=== PATIENT | female | born 1970 | race Caucasian/White ===

== ENCOUNTER 2019-03-21 02:08 | Day surgery (SDC) | payer BC ==
[~2019-03-21 02:08] MED LIST: Actoplus Met 11 EACH PO; Amaryl1 MG; CLOB.05TC TOP; CYCL10 PO; Crutch1 EACH MISC; DELZICOL400 MG PO; DOXY100 PO; FENO145 PO; HYDACE5; HYOS.125 SL; LOVA40 PO; METF500 PO; METO25ER; Norco 5-325 Ta1 EACH PO; OMEP40CA12 PO; PIOG15; PROBIOTIC1 EAC1 PO; Percocet 5-3251 EACH PO; Prilosec20 MG PO; Synthroid50 MCG PO; TRAZ50 PO
[2019-03-21] MEDS ORDERED: ENTYVIO300 MG IV (15:27)
== END 2019-03-21 16:23 | disposition home or self-care (01) ==
LOC: ATC 02:08
DX: K51.50 Left sided colitis without complications (principal); K62.89 Other specified diseases of anus and rectum
CPT/HCPCS: 96413; J3380; J7050

== ENCOUNTER 2019-04-04 00:33 | Day surgery (SDC) | payer BC ==
[~2019-04-04 00:33] MED LIST changes: +ENTYVIO300 MG IV
== END 2019-04-04 16:40 | disposition home or self-care (01) ==
LOC: ATC 00:33
DX: K51.50 Left sided colitis without complications (principal); K62.89 Other specified diseases of anus and rectum
CPT/HCPCS: 96365; J3380; J7050

== ENCOUNTER 2019-05-02 00:32 | Day surgery (SDC) | payer BC | END 2019-05-02 16:50 | disposition home or self-care (01) | LOC: ATC 00:32 | DX: K51.50 Left sided colitis without complications (principal) | CPT/HCPCS: J3380; J7050 ==

== ENCOUNTER 2019-06-27 01:11 | Day surgery (SDC) | payer BC | END 2019-06-27 23:08 | disposition home or self-care (01) | LOC: ATC 01:11 | DX: K51.90 Ulcerative colitis, unspecified, without complications (principal) | CPT/HCPCS: J3380; J7050 ==

== ENCOUNTER 2019-07-11 00:24 | Day surgery (SDC) | payer BC | END 2019-07-11 15:48 | disposition home or self-care (01) | LOC: ATC 00:24 | DX: K51.50 Left sided colitis without complications (principal) | CPT/HCPCS: 96365; J3380; J7050 ==

== ENCOUNTER 2019-08-03 19:17 | Emergency (ER) | payer BC ==
[~2019-08-03] VITALS: Ht 154.9 cm; Wt 80.7 kg
[2019-08-03 20:14] LABS: BASOPHILS ABSOLUTE AUTO 0.14 K/mm3 (0.00-0.23); BASOPHILS PERCENT AUTO 2 % (0-2); EOSINOPHILS ABSOLUTE AUTO 0.26 K/mm3 (0.00-0.68); EOSINOPHILS PERCENT AUTO 3 % (0-6); Hematocrit 36.1 % (33.0-51.0); Hemoglobin 10.8 g/dL (11.5-16.0); IMMATURE GRAN ABSOLUTE AUTO 0.02 K/mm3 (0.00-0.10); IMMATURE GRAN PERCENT AUTO 0 % (0-1); LYMPHOCYTES ABSOLUTE AUTO 3.48 K/mm3 (0.84-5.20); LYMPHOCYTES PERCENT AUTO 38 % (21-46); MONOCYTES ABSOLUTE AUTO 0.57 K/mm3 (0.16-1.47); MONOCYTES PERCENT AUTO 6 % (4-13); Mean Corpuscular HGB 21.9 pg (26.0-34.0); Mean Corpuscular HGB Conc 29.9 g/dL (31.5-36.5); Mean Corpuscular Volume 73 fL (80-100); Mean Platelet Volume 10.4 fL (9.1-12.4); NEUTROPHILS ABSOLUTE AUTO 4.72 K/mm3 (1.96-9.15); NEUTROPHILS PERCENT AUTO 51 % (41-73); Platelet Count 317 K/mm3 (150-400); RDW Coefficient Variation 16.4 % (11.7-14.2); RDW Standard Deviation 42.6 fL (35.1-46.3); Red Blood Cell Count 4.94 M/mm3 (3.80-5.20); White Blood Cell Count 9.19 K/mm3 (4.00-11.30)
[2019-08-03 20:33] LABS: Alanine Aminotransfer (ALT/SGP 17 U/L (12-78); Albumin, Blood 3.6 g/dL (3.4-5.0); Albumin/Globulin Ratio 0.9 (0.8-1.8); Alk Phos 72 U/L (50-136); Anion Gap 8 mmol/L (6-16); Aspartate Aminotrans (AST/SGOT 11 U/L (12-37); Bilirubin, Total 0.2 mg/dL (0.1-1.0); Blood Urea Nitrogen 13 mg/dL (8-24); Bun/Creatinine Ratio 20.9 (12.0-20.0); CO2, Blood 24 mmol/L (21-32); Calcium, Blood 8.2 mg/dL (8.5-10.1); Chloride, Blood 107 mmol/L (98-108); Creatinine, Blood 0.62 mg/dL (0.40-1.00); Globulin, Blood 4.2 g/dL (2.2-4.0); Glomerular Filtration Rate >60 (60-); Glucose, Blood 186 mg/dL (70-99); Potassium, Blood 3.7 mmol/L (3.5-5.5); Sodium, Blood 139 mmol/L (136-145); Total Protein, Blood 7.8 g/dL (6.4-8.2)
[2019-08-03] MEDS ORDERED: Motion Sickness25 M1 PO (21:11)
[2019-08-03] MEDS ORDERED: ONDA4ODT MM (21:11)
== END 2019-08-03 21:25 | disposition home or self-care (01) ==
LOC: ER 19:17
PROVIDERS: Emergency Medicine
DX: R42 Dizziness and giddiness (principal); R11.0 Nausea; E03.9 Hypothyroidism, unspecified; Z91.040 Latex allergy status; Z88.8 Allergy status to other drugs, medicaments and biological substances; Z79.899 Other long term (current) drug therapy
CPT/HCPCS: 36415; 80053; 85025; 93005; 93010; 96374; 96375; 99284-25; A9270-GY; J1200; J2405

== ENCOUNTER 2020-02-05 10:00 | Day surgery (SDC) | payer BC ==
[~2020-02-05 10:00] MED LIST changes: +Motion Sickness25 M1 PO; +ONDA4ODT MM
== END 2020-02-05 11:19 | disposition home or self-care (01) ==
LOC: ATC 10:00
DX: K51.90 Ulcerative colitis, unspecified, without complications (principal); K59.00 Constipation, unspecified; D50.9 Iron deficiency anemia, unspecified; E11.9 Type 2 diabetes mellitus without complications; D64.9 Anemia, unspecified; I48.91 Unspecified atrial fibrillation; Z90.49 Acquired absence of other specified parts of digestive tract; Z79.84 Long term (current) use of oral hypoglycemic drugs; Z79.52 Long term (current) use of systemic steroids; Z79.899 Other long term (current) drug therapy; Z91.040 Latex allergy status; Z88.8 Allergy status to other drugs, medicaments and biological substances
CPT/HCPCS: 96365; J3380; J7050

== ENCOUNTER 2021-01-13 01:16 | Day surgery (SDC) | payer BC ==
[~2021-01-13] VITALS: Wt 79.2 kg
[2021-01-13] MEDS ORDERED: TRAZ150T57 PO (16:11)
[2021-01-13] MEDS ORDERED: ZANAFLEX4 M8 PO (16:12)
[2021-01-13] MEDS ORDERED: CHLO25B PO (16:12)
== END 2021-01-13 17:36 | disposition home or self-care (01) ==
LOC: ATC 01:16
DX: K51.20 Ulcerative (chronic) proctitis without complications (principal); E11.9 Type 2 diabetes mellitus without complications; I48.91 Unspecified atrial fibrillation; Z90.3 Acquired absence of stomach [part of]; Z91.040 Latex allergy status; Z88.8 Allergy status to other drugs, medicaments and biological substances; Z79.899 Other long term (current) drug therapy
CPT/HCPCS: 96365; J3380; J7050

== ENCOUNTER 2021-02-07 01:18 | Day surgery (SDC) | payer BC ==
[~2021-02-07 01:18] MED LIST changes: +CHLO25B PO; +TRAZ150T57 PO; +ZANAFLEX4 M8 PO
== END 2021-02-07 14:31 | disposition home or self-care (01) ==
LOC: ATC 01:18
DX: K51.20 Ulcerative (chronic) proctitis without complications (principal); E11.9 Type 2 diabetes mellitus without complications
CPT/HCPCS: A9270; J3380; J7050

== ENCOUNTER 2021-03-07 02:29 | Day surgery (SDC) | payer BC | END 2021-03-07 15:00 | disposition home or self-care (01) | LOC: ATC 02:29 | DX: K51.30 Ulcerative (chronic) rectosigmoiditis without complications (principal); E11.9 Type 2 diabetes mellitus without complications; I48.91 Unspecified atrial fibrillation; Z88.8 Allergy status to other drugs, medicaments and biological substances; Z91.040 Latex allergy status | CPT/HCPCS: A9270; J3380; J7050 ==

== ENCOUNTER 2021-05-02 01:36 | Day surgery (SDC) | payer BC | END 2021-05-02 15:00 | disposition home or self-care (01) | LOC: ATC 01:36 | DX: K51.90 Ulcerative colitis, unspecified, without complications (principal); E11.9 Type 2 diabetes mellitus without complications; Z88.8 Allergy status to other drugs, medicaments and biological substances; Z91.040 Latex allergy status | CPT/HCPCS: J3380; J7050 ==

== ENCOUNTER 2021-06-27 03:01 | Day surgery (SDC) | payer BC | END 2021-06-27 23:11 | disposition home or self-care (01) | LOC: ATC 03:01 | DX: K51.90 Ulcerative colitis, unspecified, without complications (principal); K51.20 Ulcerative (chronic) proctitis without complications; D50.9 Iron deficiency anemia, unspecified; E11.9 Type 2 diabetes mellitus without complications; I48.91 Unspecified atrial fibrillation; Z79.899 Other long term (current) drug therapy | CPT/HCPCS: J3380; J7050 ==

== ENCOUNTER 2021-07-22 00:47 | Day surgery (SDC) | payer BC | END 2021-07-22 11:05 | disposition home or self-care (01) | LOC: ATC 00:47 | DX: K51.30 Ulcerative (chronic) rectosigmoiditis without complications (principal); E11.9 Type 2 diabetes mellitus without complications; I48.91 Unspecified atrial fibrillation; Z79.899 Other long term (current) drug therapy; Z88.8 Allergy status to other drugs, medicaments and biological substances; Z91.040 Latex allergy status | CPT/HCPCS: 96365; A9270; J3380; J7050 ==

== ENCOUNTER → 2022-02-02 | Outpatient (CLI) | payer BC | END | disposition home or self-care (01) | LOC: LAB SHORT 08:00 → LAB 08:00 | DX: N39.3 Stress incontinence (female) (male) (principal); D64.9 Anemia, unspecified; R10.2 Pelvic and perineal pain; R53.83 Other fatigue; R59.0 Localized enlarged lymph nodes | CPT/HCPCS: 85651 ==

== ENCOUNTER 2022-12-18 00:26 | Day surgery (SDC) | payer OTHER ==
[2022-12-18 14:49] VITALS: BP 118/84
--- NOTE | 2022-12-18 14:55 | NUR ---
PT DECLINES PRE MEDS.
== END 2022-12-18 15:58 | disposition home or self-care (01) ==
LOC: ATC 00:26
DX: K51.20 Ulcerative (chronic) proctitis without complications (principal); E11.9 Type 2 diabetes mellitus without complications; I48.91 Unspecified atrial fibrillation; Z91.040 Latex allergy status
CPT/HCPCS: 96365; J3380; J7050

== ENCOUNTER 2023-01-01 02:53 | Day surgery (SDC) | payer OTHER ==
[2023-01-01 09:35] VITALS: BP 115/74
== END 2023-01-01 10:55 | disposition home or self-care (01) ==
LOC: ATC 02:53
DX: K51.20 Ulcerative (chronic) proctitis without complications (principal); E11.9 Type 2 diabetes mellitus without complications; Z91.040 Latex allergy status
CPT/HCPCS: 96365; J3380; J7050

== ENCOUNTER 2023-01-26 03:12 | Day surgery (SDC) | payer OTHER ==
[2023-01-26 13:58] VITALS: BP 106/74
== END 2023-01-26 15:30 | disposition home or self-care (01) ==
LOC: ATC 03:12
DX: K51.90 Ulcerative colitis, unspecified, without complications (principal); K51.20 Ulcerative (chronic) proctitis without complications
CPT/HCPCS: 96365; J3380; J7050